=== PATIENT | male | born 1950 | race American Indian/Alaskan Native ===

== ENCOUNTER 2019-10-17 09:44 | Inpatient (IN) | payer MEDICARE ==
[2019-10-17] MEDS ORDERED: LORazepam 1 MG TAB PO PRN (10:20)
[2019-10-17] MEDS ORDERED: VALPROIC ACID 250 MG/5 ML ORAL LIQD PO ONE ×2 (11:30→22:00)
[2019-10-17] MEDS ORDERED: QUEtiapine 200 MG TAB PO SCH (22:00)
[2019-10-17] MEDS ORDERED: traZODone 50 MG TAB PO SCH (22:00)
[2019-10-17] MEDS ORDERED: risperiDONE 0.25 MG TAB PO SCH (22:00)
[2019-10-18 08:21] LABS: Alanine Aminotransferase 31 units/L (7-56); Albumin 3.6 g/dL (3.9-5); BUN/Creatinine Ratio 46; Blood Urea Nitrogen 23 mg/dL (9-20); Calcium 9.1 mg/dL (8.4-10.2); Chol/HDL Ratio 2.48 %; HDL Cholesterol 62 mg/dL (40-59); Hemolysis Index 13; LDL Cholesterol,Direct 90 mg/dL (50-130)
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
[2019-10-18] MEDS ORDERED: SERTRALINE 100 MG TAB PO SCH (10:00)
[2019-10-18 10:19] LABS: Basophils % (Auto) 0.4 % (0.0-1.8); Eosinophils # (Auto) 0.1 K/mm3 (0.0-0.4); Eosinophils % (Auto) 0.5 % (0.0-4.3); Hematocrit 41.1 % (35.5-45.6); Hemoglobin 13.4 gm/dl (11.8-15.2); Lymphocytes # (Auto) 0.6 K/mm3 (1.2-5.4); Lymphocytes % (Auto) 5.5 % (13.4-35.0); Mean Corpuscular HGB Conc 33 % (32-34); Mean Corpuscular Volume 90 fl (84-94); Monocytes # (Auto) 0.9 K/mm3 (0.0-0.8); Monocytes % (Auto) 7.7 % (0.0-7.3); Platelet Count 248 K/mm3 (140-440); Red Blood Count 4.56 M/mm3 (3.65-5.03); Red Cell Distribution Width 15.4 % (13.2-15.2)
[2019-10-18] MEDS ORDERED: ZIPRASIDONE MESYLATE 20 MG VIAL IM PRN (10:30)
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
[2019-10-18] MEDS: traZODone 50 MG TAB PO SCH (21:38)
--- NOTE | 2019-10-19 09:33 | Progress Note ---
Subjective Date of service: 10/19/19 Principal diagnosis: Dementia with Behavioral Disturbances Subjective Comment: I interviewed the patient this morning. Medical records reviewed and patient's progress was discussed with unit staff. Nursing staff reports that patient was medication compliant last evening. He attended group with little interaction. Patient has minimal but appropriate interaction. He went to bed around 2200 with staff assistance. He rested quietly. Patient presents as sleeping 7 plus hours. In my interview with the patient this morning, the patient reports a good appetite. He reports sleeping well Review of Symptoms: Constitutional: Negative for weight loss ENT: Negative for stridor Respiratory: Negative for cough or hemoptysis All other systems reviewed and are negative MSE Appearance: Wearing appropriate clothing. Behavior: Pleasant and cooperative. Mood: "Good" Affect: Congruent with stated mood Thought Process: disorganized Speech: Normal rate. Thought Content Harmfulness Denies SI/HI Hallucinations: patient denies Delusions: none elicited Consciousness: alert. Cognition/Memory: impaired Insight/Judgment: Limited. Diagnosis: Dementia with Behavioral Disturbances Treatment Plan Due to the psychiatric conditions and treatment listed in the Assessment and Plan - the patient requires continued hospitalization. Will continue inpatient treatment to allow for medication adjustment and monitoring. Will continue q15 min safety checks. Will encourage the use of environmental modifications and non-pharmacologic approaches for the management of behavioral and psychological symptoms. Medication adjustment made today: None Will continue current psych medications Monitor for medication side effects. The patient will continue on medications for physical illnesses, and Hospitalist will closely monitor these Continue intensive physical and occupational therapies. Monitor patient's mood, sleep, appetite, and behavior closely. Encourage patient to participate in individual and group therapeutic sessions on the velazquez. Will provide a safe and therapeutic environment for patient. ELOS: 3 - 4 DAYS Medications and Allergies Allergies Allergy/AdvReac Type Severity Reaction Status Date / Time No Known Allergies Allergy Verified 10/17/19 10:25 Home Medications Medication Instructions Recorded Confirmed Last Taken Type Carbidopa/Levodopa 25-100 25 - 100 mg PO TID 10/18/19 10/18/19 Unknown History Carbidopa/Levodopa ER 25-100 25 - 100 mg PO QHS 10/18/19 10/18/19 Unknown History Quetiapine Fumarate 200 mg PO QHS 10/18/19 10/18/19 Unknown History Senna 8.6 mg PO DAILY PRN 10/18/19 10/18/19 Unknown History Tylenol 500 mg PO Q6H PRN 10/18/19 10/18/19 Unknown History Valproic Acid 250 mg PO QHS 10/18/19 10/18/19 Unknown History Active Meds: Active Medications Trazodone HCl (Desyrel) 50 mg PO QHS [facility] Last Admin: 10/18/19 21:38 Dose: 50 mg Documented by: Ziprasidone (Geodon) 20 mg IM Q4H PRN PRN Reason: Agitation Results - Results Labs/Vitals: Laboratory Last Values WBC 11.2 K/mm3 (4.5-11.0) H 10/18/19 09:46 RBC 4.56 M/mm3 (3.65-5.03) 10/18/19 09:46 Hgb 13.4 gm/dl (11.8-15.2) 10/18/19 09:46 Hct 41.1 % (35.5-45.6) 10/18/19 09:46 MCV 90 fl (84-94) 10/18/19 09:46 MCH 29 pg (28-32) 10/18/19 09:46 MCHC 33 % (32-34) 10/18/19 09:46 RDW 15.4 % (13.2-15.2) H 10/18/19 09:46 Plt Count 248 K/mm3 (140-440) 10/18/19 09:46 Lymph % (Auto) 5.5 % (13.4-35.0) L 10/18/19 09:46 [place] % (Auto) 7.7 % (0.0-7.3) H 10/18/19 09:46 Eos % (Auto) 0.5 % (0.0-4.3) 10/18/19 09:46 Baso % (Auto) 0.4 % (0.0-1.8) 10/18/19 09:46 Lymph # 0.6 K/mm3 (1.2-5.4) L 10/18/19 09:46 [place] # 0.9 K/mm3 (0.0-0.8) H 10/18/19 09:46 Eos # 0.1 K/mm3 (0.0-0.4) 10/18/19 09:46 Baso # 0.0 K/mm3 (0.0-0.1) 10/18/19 09:46 Seg Neutrophils % 85.9 % (40.0-70.0) H 10/18/19 09:46 Seg Neutrophils # 9.6 K/mm3 (1.8-7.7) H 10/18/19 09:46 Sodium 145 mmol/L (137-145) 10/18/19 06:51 Potassium 4.3 mmol/L (3.6-5.0) 10/18/19 06:51 Chloride 108.8 mmol/L (98-107) H 10/18/19 06:51 Carbon Dioxide 19 mmol/L (22-30) L 10/18/19 06:51 Anion Gap 22 mmol/L 10/18/19 06:51 BUN 23 mg/dL (9-20) H 10/18/19 06:51 Creatinine 0.5 mg/dL (0.8-1.5) L 10/18/19 06:51 Estimated GFR > 60 ml/min 10/18/19 06:51 BUN/Creatinine Ratio 46 % 10/18/19 06:51 Glucose 97 mg/dL (75-100) 10/18/19 06:51 POC Glucose 121 (70-105) H 10/17/19 20:35 Hemoglobin A1c 6.0 % (4-6) 10/18/19 09:46 Calcium 9.1 mg/dL (8.4-10.2) 10/18/19 06:51 Total Bilirubin 0.30 mg/dL (0.1-1.2) 10/18/19 06:51 AST 14 units/L (5-40) 10/18/19 06:51 ALT 31 units/L (7-56) 10/18/19 06:51 Alkaline Phosphatase 72 units/L (35-129) 10/18/19 06:51 Total Protein 6.4 g/dL (6.3-8.2) 10/18/19 06:51 Albumin 3.6 g/dL (3.9-5) L 10/18/19 06:51 Albumin/Globulin Ratio 1.3 % 10/18/19 06:51 Triglycerides 63 mg/dL (2-149) 10/18/19 06:51 Cholesterol 154 mg/dL (50-199) 10/18/19 06:51 LDL Cholesterol Direct 90 mg/dL (50-130) 10/18/19 06:51 HDL Cholesterol 62 mg/dL (40-59) H 10/18/19 06:51 Cholesterol/HDL Ratio 2.48 % 10/18/19 06:51 Valproic Acid 19.4 ug/mL (50-100) L 10/18/19 06:51 Last Vital Signs Temp 97.5 F L 10/18/19 19:57 Pulse 79 10/18/19 19:57 Resp 16 10/18/19 19:57 BP 120/71 10/18/19 19:57 Pulse Ox 95 10/18/19 19:57
[2019-10-19] MEDS ORDERED: TYLENOL 500 MG PO PRN (18:17)
[2019-10-19] MEDS ORDERED: SENNA 8.6 MG PO PRN (18:17)
[2019-10-19] MEDS ORDERED: ACETAMINOPHEN 500 MG TAB PO PRN (18:40)
[2019-10-19] MEDS ORDERED: SENNOSIDES 8.6 MG TAB PO PRN (18:40)
[2019-10-19] MEDS: traZODone 50 MG TAB PO SCH (21:51)
[2019-10-19] MEDS: QUEtiapine 200 MG TAB PO SCH (21:51)
[2019-10-19] MEDS: VALPROIC ACID 250 MG CAP PO SCH (21:52)
[2019-10-19] MEDS ORDERED: QUETIAPINE FUMARATE 200 MG PO SCH (22:00)
[2019-10-19] MEDS ORDERED: VALPROIC ACID 250 MG PO SCH (22:00)
--- NOTE | 2019-10-20 07:39 | XRay Report ---
CHEST 1 VIEW INDICATION: Pneumonia. COMPARISON: none FINDINGS: SUPPORT DEVICES: None. HEART / MEDIASTINUM: No significant abnormality. LUNGS / PLEURA: No significant pulmonary or pleural abnormality. No pneumothorax. ADDITIONAL FINDINGS: IMPRESSION: 1. No acute findings. Signer Name: Tico Baig MD Signed: 10/20/2019 7:34 AM Workstation Name: [id number]
--- NOTE | 2019-10-20 09:06 | Progress Note ---
Subjective Date of service: 10/20/19 Principal diagnosis: Dementia with Behavioral Disturbances Subjective Comment: Subjective Comment: I interviewed the patient this morning. Medical records reviewed and patient's progress was discussed with unit staff. Nursing note states the patient attended group with little interaction. Patient has minimal but appropriate interaction. He went to bed around 2200 with staff assistance. He rested quietly. Patient presents as sleeping 7 plus hours. In my interview with the patient this morning, he is still in bed. Asleep. Aroused by vigorous tactile stimulation. He is confused, but makes eye contact. He drifts back to sleep on and off during interview. He replies "yes" when asked if he slept well. He also replies "yes" when asked if his mood was good. Review of Symptoms: Constitutional: Negative for weight loss ENT: Negative for stridor Respiratory: Negative for cough or hemoptysis All other systems reviewed and are negative MSE Appearance: Wearing appropriate clothing. Drowsy Behavior: Calm, cooperative Mood: Good Affect: Congruent with stated mood Thought Process: disorganized Speech: Normal rate. Thought Content Harmfulness Denies SI/HI Hallucinations: patient denies Delusions: none elicited Consciousness: Drowsy Cognition/Memory: impaired Insight/Judgment: Limited. Diagnosis: Dementia with Behavioral Disturbances Treatment Plan Due to the psychiatric conditions and treatment listed in the Assessment and Plan - the patient requires continued hospitalization. Will continue inpatient treatment to allow for medication adjustment and monitoring. Will continue q15 min safety checks. Will encourage the use of environmental modifications and non-pharmacologic a pproaches for the management of behavioral and psychological symptoms. Medication adjustment made today: None Will continue current psych medications Monitor for medication side effects. The patient will continue on medications for physical illnesses, and Hospitalist will closely monitor these Continue intensive physical and occupational therapies. Monitor patient's mood, sleep, appetite, and behavior closely. Encourage patient to participate in individual and group therapeutic sessions on the velazquez. Will provide a safe and therapeutic environment for patient. ELOS: 3 - 4 DAYS Medications and Allergies Allergies Allergy/AdvReac Type Severity Reaction Status Date / Time No Known Allergies Allergy Verified 10/17/19 10:25 Home Medications Medication Instructions Recorded Confirmed Last Taken Type Carbidopa/Levodopa 25-100 25 - 100 mg PO TID 10/18/19 10/18/19 Unknown History Carbidopa/Levodopa ER 25-100 25 - 100 mg PO QHS 10/18/19 10/18/19 Unknown History Quetiapine Fumarate 200 mg PO QHS 10/18/19 10/18/19 Unknown History Senna 8.6 mg PO DAILY PRN 10/18/19 10/18/19 Unknown History Tylenol 500 mg PO Q6H PRN 10/18/19 10/18/19 Unknown History Valproic Acid 250 mg PO QHS 10/18/19 10/18/19 Unknown History Active Meds: Active Medications Acetaminophen (Tylenol) 500 mg PO Q6H PRN PRN Reason: Pain, Mild (1-3) [facility] Admin: 10/19/19 21:51 Dose: 200 mg Documented by: Senna (Senokot) 8.6 mg PO DAILY PRN PRN Reason: CONSTIPATION [facility] ([facility]) [facility] Last Admin: 10/19/19 21:51 Dose: 50 mg Documented by: Valproic [facility] (Depakene) [facility] Last Admin: 10/19/19 21:52 Dose: 250 mg Documented by: Ziprasidone (Geodon) 20 mg IM Q4H PRN PRN Reason: Agitation Results - Results Labs/Vitals: Laboratory Last Values WBC 11.2 K/mm3 (4.5-11.0) H 10/18/19 09:46 RBC 4.56 M/mm3 (3.65-5.03) 10/18/19 09:46 Hgb 13.4 gm/dl (11.8-15.2) 10/18/19 09:46 Hct 41.1 % (35.5-45.6) 10/18/19 09:46 MCV 90 fl (84-94) 10/18/19 09:46 MCH 29 pg (28-32) 10/18/19 09:46 MCHC 33 % (32-34) 10/18/19 09:46 RDW 15.4 % (13.2-15.2) H 10/18/19 09:46 Plt Count 248 K/mm3 (140-440) 10/18/19 09:46 Lymph % (Auto) 5.5 % (13.4-35.0) L 10/18/19 09:46 [place] % (Auto) 7.7 % (0.0-7.3) H 10/18/19 09:46 Eos % (Auto) 0.5 % (0.0-4.3) 10/18/19 09:46 Baso % (Auto) 0.4 % (0.0-1.8) 10/18/19 09:46 Lymph # 0.6 K/mm3 (1.2-5.4) L 10/18/19 09:46 [place] # 0.9 K/mm3 (0.0-0.8) H 10/18/19 09:46 Eos # 0.1 K/mm3 (0.0-0.4) 10/18/19 09:46 Baso # 0.0 K/mm3 (0.0-0.1) 10/18/19 09:46 Seg Neutrophils % 85.9 % (40.0-70.0) H 10/18/19 09:46 Seg Neutrophils # 9.6 K/mm3 (1.8-7.7) H 10/18/19 09:46 Sodium 145 mmol/L (137-145) 10/18/19 06:51 Potassium 4.3 mmol/L (3.6-5.0) 10/18/19 06:51 Chloride 108.8 mmol/L (98-107) H 10/18/19 06:51 Carbon Dioxide 19 mmol/L (22-30) L 10/18/19 06:51 Anion Gap 22 mmol/L 10/18/19 06:51 BUN 23 mg/dL (9-20) H 10/18/19 06:51 Creatinine 0.5 mg/dL (0.8-1.5) L 10/18/19 06:51 Estimated GFR > 60 ml/min 10/18/19 06:51 BUN/Creatinine Ratio 46 % 10/18/19 06:51 Glucose 97 mg/dL (75-100) 10/18/19 06:51 POC Glucose 121 (70-105) H 10/17/19 20:35 Hemoglobin A1c 6.0 % (4-6) 10/18/19 09:46 Calcium 9.1 mg/dL (8.4-10.2) 10/18/19 06:51 Total Bilirubin 0.30 mg/dL (0.1-1.2) 10/18/19 06:51 AST 14 units/L (5-40) 10/18/19 06:51 ALT 31 units/L (7-56) 10/18/19 06:51 Alkaline Phosphatase 72 units/L (35-129) 10/18/19 06:51 Total Protein 6.4 g/dL (6.3-8.2) 10/18/19 06:51 Albumin 3.6 g/dL (3.9-5) L 10/18/19 06:51 Albumin/Globulin Ratio 1.3 % 10/18/19 06:51 Triglycerides 63 mg/dL (2-149) 10/18/19 06:51 Cholesterol 154 mg/dL (50-199) 10/18/19 06:51 LDL Cholesterol Direct 90 mg/dL (50-130) 10/18/19 06:51 HDL Cholesterol 62 mg/dL (40-59) H 10/18/19 06:51 Cholesterol/HDL Ratio 2.48 % 10/18/19 06:51 Valproic Acid 19.4 ug/mL (50-100) L 10/18/19 06:51 Last Vital Signs Temp 98.2 F 10/19/19 19:30 Pulse 77 10/19/19 19:30 Resp 18 10/19/19 19:30 BP 142/85 10/19/19 19:30 Pulse Ox 95 10/19/19 19:30
[2019-10-20] MEDS: VALPROIC ACID 250 MG CAP PO SCH (21:35)
[2019-10-20] MEDS: traZODone 50 MG TAB PO SCH (21:35)
[2019-10-20] MEDS: QUEtiapine 200 MG TAB PO SCH (21:35)
--- NOTE | 2019-10-21 07:42 | Progress Note ---
Subjective Date of service: 10/21/19 Principal diagnosis: Dementia with Behavioral Disturbances Subjective Comment: Subjective Comment: I interviewed the patient this morning. Medical records reviewed and patient's progress was discussed with unit staff. Nursing note states patient is medication compliant, consumed about 75% of bed time snack, total care, calm and cooperative, alert and oriented to person, no behavioral issues, no distress noted In my interview with the patient this morning, he is still in bed. Awake. He responds and makes eye contact when spoken to. He is confused. He inappropriately responds "yes" to all interview questions. Review of Symptoms: Constitutional: Negative for weight loss ENT: Negative for stridor Respiratory: Negative for cough or hemoptysis All other systems reviewed and are negative MSE Appearance: Wearing appropriate clothing. Awake Behavior: Calm, cooperative Mood: "yes" Affect: Congruent with stated mood Thought Process: disorganized Speech: Normal rate. Thought Content (unable answer appropriately) Harmfulness Hallucinations: Delusions: none elicited Consciousness: Alert Cognition/Memory: impaired Insight/Judgment: Limited. Diagnosis: Dementia with Behavioral Disturbances Treatment Plan Due to the psychiatric conditions and treatment listed in the Assessment and Plan - the patient requires continued hospitalization. Will continue inpatient treatment to allow for medication adjustment and monitoring. Will continue q15 min safety checks. Will encourage the use of environmental modifications and non-pharmacologic approaches for the management of behavioral and psychological symptoms. Medication adjustment made today: None Will continue current psych medications Monitor for medication side effects. The patient will continue on medications for physical illnesses, and Hospitalist will closely monitor these Continue intensive physical and occupational therapies. Monitor patient's mood, sleep, appetite, and behavior closely. Encourage patient to participate in individual and group therapeutic sessions on the velazquez. Will provide a safe and therapeutic environment for patient. ELOS: 3 DAYS Medications and Allergies Allergies Allergy/AdvReac Type Severity Reaction Status Date / Time No Known Allergies Allergy Verified 10/17/19 10:25 Home Medications Medication Instructions Recorded Confirmed Last Taken Type Carbidopa/Levodopa 25-100 25 - 100 mg PO TID 10/18/19 10/18/19 Unknown History Carbidopa/Levodopa ER 25-100 25 - 100 mg PO QHS 10/18/19 10/18/19 Unknown History Quetiapine Fumarate 200 mg PO QHS 10/18/19 10/18/19 Unknown History Senna 8.6 mg PO DAILY PRN 10/18/19 10/18/19 Unknown History Tylenol 500 mg PO Q6H PRN 10/18/19 10/18/19 Unknown History Valproic Acid 250 mg PO QHS 10/18/19 10/18/19 Unknown History Active Meds: Active Medications Acetaminophen (Tylenol) 500 mg PO Q6H PRN PRN Reason: Pain, Mild (1-3) [facility] Last Admin: 10/20/19 21:35 Dose: 200 mg Documented by: Senna (Senokot) 8.6 mg PO DAILY PRN PRN Reason: CONSTIPATION Trazodone HCl (Desyrel) 50 mg PO QHS [facility] Last Admin: 10/20/19 21:35 Dose: 50 mg Documented by: Valproic [facility] ([facility]) [facility] Last Admin: 10/20/19 21:35 Dose: 250 mg Documented by: Ziprasidone (Geodon) 20 mg IM Q4H PRN PRN Reason: Agitation Results - Results Labs/Vitals: Laboratory Last Values WBC 11.2 K/mm3 (4.5-11.0) H 10/18/19 09:46 RBC 4.56 M/mm3 (3.65-5.03) 10/18/19 09:46 Hgb 13.4 gm/dl (11.8-15.2) 10/18/19 09:46 Hct 41.1 % (35.5-45.6) 10/18/19 09:46 MCV 90 fl (84-94) 10/18/19 09:46 MCH 29 pg (28-32) 10/18/19 09:46 MCHC 33 % (32-34) 10/18/19 09:46 RDW 15.4 % (13.2-15.2) H 10/18/19 09:46 Plt Count 248 K/mm3 (140-440) 10/18/19 09:46 Lymph % (Auto) 5.5 % (13.4-35.0) L 10/18/19 09:46 [place] % (Auto) 7.7 % (0.0-7.3) H 10/18/19 09:46 Eos % (Auto) 0.5 % (0.0-4.3) 10/18/19 09:46 Baso % (Auto) 0.4 % (0.0-1.8) 10/18/19 09:46 Lymph # 0.6 K/mm3 (1.2-5.4) L 10/18/19 09:46 [place] # 0.9 K/mm3 (0.0-0.8) H 10/18/19 09:46 Eos # 0.1 K/mm3 (0.0-0.4) 10/18/19 09:46 Baso # 0.0 K/mm3 (0.0-0.1) 10/18/19 09:46 Seg Neutrophils % 85.9 % (40.0-70.0) H 10/18/19 09:46 Seg Neutrophils # 9.6 K/mm3 (1.8-7.7) H 10/18/19 09:46 Sodium 145 mmol/L (137-145) 10/18/19 06:51 Potassium 4.3 mmol/L (3.6-5.0) 10/18/19 06:51 Chloride 108.8 mmol/L (98-107) H 10/18/19 06:51 Carbon Dioxide 19 mmol/L (22-30) L 10/18/19 06:51 Anion Gap 22 mmol/L 10/18/19 06:51 BUN 23 mg/dL (9-20) H 10/18/19 06:51 Creatinine 0.5 mg/dL (0.8-1.5) L 10/18/19 06:51 Estimated GFR > 60 ml/min 10/18/19 06:51 BUN/Creatinine Ratio 46 % 10/18/19 06:51 Glucose 97 mg/dL (75-100) 10/18/19 06:51 POC Glucose 121 (70-105) H 10/17/19 20:35 Hemoglobin A1c 6.0 % (4-6) 10/18/19 09:46 Calcium 9.1 mg/dL (8.4-10.2) 10/18/19 06:51 Total Bilirubin 0.30 mg/dL (0.1-1.2) 10/18/19 06:51 AST 14 units/L (5-40) 10/18/19 06:51 ALT 31 units/L (7-56) 10/18/19 06:51 Alkaline Phosphatase 72 units/L (35-129) 10/18/19 06:51 Total Protein 6.4 g/dL (6.3-8.2) 10/18/19 06:51 Albumin 3.6 g/dL (3.9-5) L 10/18/19 06:51 Albumin/Globulin Ratio 1.3 % 10/18/19 06:51 Triglycerides 63 mg/dL (2-149) 10/18/19 06:51 Cholesterol 154 mg/dL (50-199) 10/18/19 06:51 LDL Cholesterol Direct 90 mg/dL (50-130) 10/18/19 06:51 HDL Cholesterol 62 mg/dL (40-59) H 10/18/19 06:51 Cholesterol/HDL Ratio 2.48 % 10/18/19 06:51 Valproic Acid 19.4 ug/mL (50-100) L 10/18/19 06:51 Last Vital Signs Temp 98.3 F 10/20/19 19:30 Pulse 88 10/20/19 19:30 Resp 20 10/20/19 19:30 BP 145/86 10/20/19 19:30 Pulse Ox 92 10/20/19 19:30
[2019-10-21] MEDS ORDERED: LORazepam 2 MG/ML VIAL IM ONE (13:00)
[2019-10-21] MEDS: VALPROIC ACID 250 MG CAP PO SCH ×2 (15:00→19:56)
[2019-10-21] MEDS: traZODone 50 MG TAB PO SCH (21:30)
[2019-10-21] MEDS: QUEtiapine 200 MG TAB PO SCH (21:30)
[2019-10-22] MEDS: VALPROIC ACID 250 MG CAP PO SCH ×3 (09:13→21:05)
[2019-10-22] MEDS ORDERED: WATER FOR INJ Sterile (PF) 10 ML ONE (10:50)
[2019-10-22] MEDS: ZIPRASIDONE MESYLATE 20 MG VIAL IM PRN (10:57)
--- NOTE | 2019-10-22 10:59 | Progress Note ---
Subjective Date of service: 10/22/19 Principal diagnosis: Dementia with Behavioral Disturbances Subjective Comment: I interviewed the patient this morning. Medical records reviewed and patient's progress was discussed with unit staff. Nursing staff reports that patient was medication compliant last evening during the night he was very noisy and fighting with the staff. Patient has been up most of the night. The staff also reported that the patient has been restless and agitated and required PRN medication. In my interview with the patient this morning, the patient was very drowsy and was unable to respond to my questions. With follow-up later. Reason for continued hospitalization: monitor medication effectiveness and behavioral issues. Review of Symptoms: Constitutional: Negative for weight loss ENT: Negative for stridor Respiratory: Negative for cough or hemoptysis All other systems reviewed and are negative MSE Appearance: Wearing appropriate clothing. Good hygiene Behavior: sleeping Mood: Affect: Congruent with stated mood Thought Process: Goal directed Speech: Normal rate. Thought Content Harmfulness Denies SI/HI Hallucinations: patient denies Delusions: none elicited Consciousness: alert. Cognition/Memory: Impaired Insight/Judgment: Limited. Diagnosis: increased agitation and aggression Treatment Plan Due to the psychiatric conditions and treatment listed in the Assessment and Plan - the patient requires continued hospitalization. Will continue inpatient treatment to allow for medication adjustment and monitoring. Will continue q15 min safety checks. Will encourage the use of environmental modifications and non-pharmacologic approaches for the management of behavioral and psychological symptoms. Medication adjustment made today: Increase trazodone to 100 mg daily at bedtime. Will continue current psych medications Monitor for medication side effects. The patient will continue on medications for physical illnesses, and Hospitalist will closely monitor these Continue intensive physical and occupational therapies. Monitor patient's mood, sleep, appetite, and behavior closely. Encourage patient to participate in individual and group therapeutic sessions on the velazquez. Will provide a safe and therapeutic environment for patient. ELOS: 3 - 4 DAYS Medications and Allergies Allergies Allergy/AdvReac Type Severity Reaction Status Date / Time No Known Allergies Allergy Verified 10/17/19 10:25 Home Medications Medication Instructions Recorded Confirmed Last Taken Type Carbidopa/Levodopa 25-100 25 - 100 mg PO TID 10/18/19 10/18/19 Unknown History Carbidopa/Levodopa ER 25-100 25 - 100 mg PO QHS 10/18/19 10/18/19 Unknown History Quetiapine Fumarate 200 mg PO QHS 10/18/19 10/18/19 Unknown History Senna 8.6 mg PO DAILY PRN 10/18/19 10/18/19 Unknown History Tylenol 500 mg PO Q6H PRN 10/18/19 10/18/19 Unknown History Valproic Acid 250 mg PO QHS 10/18/19 10/18/19 Unknown History Active Meds: Active Medications Acetaminophen (Tylenol) 500 mg PO Q6H PRN PRN Reason: Pain, Mild (1-3) Quetiapine Fumarate (Seroquel) 200 mg PO QHS [facility] Last Admin: 10/21/19 21:30 Dose: 200 mg Documented by: Senna (Senokot) 8.6 mg PO DAILY PRN PRN Reason: CONSTIPATION Trazodone HCl (Desyrel) 50 mg PO QHS [facility] Last Admin: 10/21/19 21:30 Dose: 50 mg Documented by: Valproic Acid (Depakene) 250 mg PO TID [facility] Last Admin: 10/22/19 09:13 Dose: 250 mg Documented by: Ziprasidone (Geodon) 10 mg IM Q4H PRN PRN Reason: Agitation Last Admin: 10/22/19 10:57 Dose: 10 mg Documented by: Results - Results Labs/Vitals: Laboratory Last Values WBC 11.2 K/mm3 (4.5-11.0) H 10/18/19 09:46 RBC 4.56 M/mm3 (3.65-5.03) 10/18/19 09:46 Hgb 13.4 gm/dl (11.8-15.2) 10/18/19 09:46 Hct 41.1 % (35.5-45.6) 10/18/19 09:46 MCV 90 fl (84-94) 10/18/19 09:46 MCH 29 pg (28-32) 10/18/19 09:46 MCHC 33 % (32-34) 10/18/19 09:46 RDW 15.4 % (13.2-15.2) H 10/18/19 09:46 Plt Count 248 K/mm3 (140-440) 10/18/19 09:46 Lymph % (Auto) 5.5 % (13.4-35.0) L 10/18/19 09:46 [place] % (Auto) 7.7 % (0.0-7.3) H 10/18/19 09:46 Eos % (Auto) 0.5 % (0.0-4.3) 10/18/19 09:46 Baso % (Auto) 0.4 % (0.0-1.8) 10/18/19 09:46 Lymph # 0.6 K/mm3 (1.2-5.4) L 10/18/19 09:46 [place] # 0.9 K/mm3 (0.0-0.8) H 10/18/19 09:46 Eos # 0.1 K/mm3 (0.0-0.4) 10/18/19 09:46 Baso # 0.0 K/mm3 (0.0-0.1) 10/18/19 09:46 Seg Neutrophils % 85.9 % (40.0-70.0) H 10/18/19 09:46 Seg Neutrophils # 9.6 K/mm3 (1.8-7.7) H 10/18/19 09:46 Sodium 145 mmol/L (137-145) 10/18/19 06:51 Potassium 4.3 mmol/L (3.6-5.0) 10/18/19 06:51 Chloride 108.8 mmol/L (98-107) H 10/18/19 06:51 Carbon Dioxide 19 mmol/L (22-30) L 10/18/19 06:51 Anion Gap 22 mmol/L 10/18/19 06:51 BUN 23 mg/dL (9-20) H 10/18/19 06:51 Creatinine 0.5 mg/dL (0.8-1.5) L 10/18/19 06:51 Estimated GFR > 60 ml/min 10/18/19 06:51 BUN/Creatinine Ratio 46 % 10/18/19 06:51 Glucose 97 mg/dL (75-100) 10/18/19 06:51 POC Glucose 121 (70-105) H 10/17/19 20:35 Hemoglobin A1c 6.0 % (4-6) 10/18/19 09:46 Calcium 9.1 mg/dL (8.4-10.2) 10/18/19 06:51 Total Bilirubin 0.30 mg/dL (0.1-1.2) 10/18/19 06:51 AST 14 units/L (5-40) 10/18/19 06:51 ALT 31 units/L (7-56) 10/18/19 06:51 Alkaline Phosphatase 72 units/L (35-129) 10/18/19 06:51 Total Protein 6.4 g/dL (6.3-8.2) 10/18/19 06:51 Albumin 3.6 g/dL (3.9-5) L 10/18/19 06:51 Albumin/Globulin Ratio 1.3 % 10/18/19 06:51 Triglycerides 63 mg/dL (2-149) 10/18/19 06:51 Cholesterol 154 mg/dL (50-199) 10/18/19 06:51 LDL Cholesterol Direct 90 mg/dL (50-130) 10/18/19 06:51 HDL Cholesterol 62 mg/dL (40-59) H 10/18/19 06:51 Cholesterol/HDL Ratio 2.48 % 10/18/19 06:51 Valproic Acid 19.4 ug/mL (50-100) L 10/18/19 06:51 Last Vital Signs Temp 98.0 F 10/22/19 08:00 Pulse 84 10/22/19 09:35 Resp 20 10/22/19 08:00 BP 106/61 10/22/19 09:35 Pulse Ox 93 10/22/19 09:35
[2019-10-22] MEDS: traZODone 100 MG TAB PO SCH (21:05)
[2019-10-22] MEDS: QUEtiapine 200 MG TAB PO SCH (21:06)
--- NOTE | 2019-10-23 07:33 | Progress Note ---
Subjective Date of service: 10/23/19 Principal diagnosis: Dementia with Behavioral Disturbances Subjective Comment: Subjective Comment: I interviewed the patient this morning. Medical records reviewed and patient's progress was discussed with unit staff. Nursing note states medication minimally effective. patient continues to be restless in bed. patient re-oriented but not effective. patient said, "no" when song writer asked if he could walk, but continues to try to climb out of bed. In my interview with the patient this morning, he is still in bed. Asleep but easily arouses. He is a/o x 1. The patient says he had a good night. He replied "yes" when asked if his appetite was okay. When asked how was his mood, Mr. Camara becomes quite agitated and shouts, "not good, want to get out of here." He denies SI/HI or any hallucinations. Reason for continued hospitalization: The patient continues to have increased agitation and restlessness. Medications being adjusted. Review of Symptoms: Constitutional: Negative for weight loss ENT: Negative for stridor Respiratory: Negative for cough or hemoptysis All other systems reviewed and are negative Mental Status Exam Appearance: Wearing appropriate clothing. Asleep Behavior: Irritable, cooperative Mood: "Not good, want to get out of here" Affect: Congruent with stated mood Thought Process: disorganized Speech: Normal rate. Thought Content Harmfulness: Denies Hallucinations: Denies Delusions: none elicited Consciousness: Drowsy Cognition/Memory: impaired Insight/Judgment: Limited. Diagnosis: Dementia with Behavioral Disturbances Treatment Plan Due to the psychiatric conditions and treatment listed in the Assessment and Plan - the patient requires continued hospitalization. Will continue inpatient treatment to allow for medication adjustment and monitoring. Will continue q15 min safety checks. Will encourage the use of environmental modifications and non-pharmacologic approaches for the management of behavioral and psychological symptoms. Medication adjustment made today: Risperidone 0.25mg po daily to treat agitation and irritability Will continue current psych medications Monitor for medication side effects. The patient will continue on medications for physical illnesses, and Hospitalist will closely monitor these Continue intensive physical and occupational therapies. Monitor patient's mood, sleep, appetite, and behavior closely. Encourage patient to participate in individual and group therapeutic sessions on the velazquez. Will provide a safe and therapeutic environment for patient. ELOS: 3 to 4 DAYS Medications and Allergies Allergies Allergy/AdvReac Type Severity Reaction Status Date / Time No Known Allergies Allergy Verified 10/17/19 10:25 Home Medications Medication Instructions Recorded Confirmed Last Taken Type Carbidopa/Levodopa 25-100 25 - 100 mg PO TID 10/18/19 10/18/19 Unknown History Carbidopa/Levodopa ER 25-100 25 - 100 mg PO QHS 10/18/19 10/18/19 Unknown History Quetiapine Fumarate 200 mg PO QHS 10/18/19 10/18/19 Unknown History Senna 8.6 mg PO DAILY PRN 10/18/19 10/18/19 Unknown History Tylenol 500 mg PO Q6H PRN 10/18/19 10/18/19 Unknown History Valproic Acid 250 mg PO QHS 10/18/19 10/18/19 Unknown History Active Meds: Active Medications Acetaminophen (Tylenol) 500 mg PO Q6H PRN PRN Reason: Pain, Mild (1-3) Quetiapine Fumarate (Seroquel) 200 mg PO QHS [facility] Last Admin: 10/22/19 21:06 Dose: 200 mg Documented by: Senna (Senokot) 8.6 mg PO DAILY PRN PRN Reason: CONSTIPATION Trazodone HCl (Desyrel) 100 mg PO QHS [facility] Last Admin: 10/22/19 21:05 Dose: 100 mg Documented by: Valproic Acid (Depakene) 250 mg PO TID [facility] Last Admin: 10/22/19 21:05 Dose: 250 mg Documented by: Ziprasidone (Geodon) 10 mg IM Q4H PRN PRN Reason: Agitation Last Admin: 10/22/19 10:57 Dose: 10 mg Documented by: Results - Results Labs/Vitals: Laboratory Last Values WBC 11.2 K/mm3 (4.5-11.0) H 10/18/19 09:46 RBC 4.56 M/mm3 (3.65-5.03) 10/18/19 09:46 Hgb 13.4 gm/dl (11.8-15.2) 10/18/19 09:46 Hct 41.1 % (35.5-45.6) 10/18/19 09:46 MCV 90 fl (84-94) 10/18/19 09:46 MCH 29 pg (28-32) 10/18/19 09:46 MCHC 33 % (32-34) 10/18/19 09:46 RDW 15.4 % (13.2-15.2) H 10/18/19 09:46 Plt Count 248 K/mm3 (140-440) 10/18/19 09:46 Lymph % (Auto) 5.5 % (13.4-35.0) L 10/18/19 09:46 [place] % (Auto) 7.7 % (0.0-7.3) H 10/18/19 09:46 Eos % (Auto) 0.5 % (0.0-4.3) 10/18/19 09:46 Baso % (Auto) 0.4 % (0.0-1.8) 10/18/19 09:46 Lymph # 0.6 K/mm3 (1.2-5.4) L 10/18/19 09:46 [place] # 0.9 K/mm3 (0.0-0.8) H 10/18/19 09:46 Eos # 0.1 K/mm3 (0.0-0.4) 10/18/19 09:46 Baso # 0.0 K/mm3 (0.0-0.1) 10/18/19 09:46 Seg Neutrophils % 85.9 % (40.0-70.0) H 10/18/19 09:46 Seg Neutrophils # 9.6 K/mm3 (1.8-7.7) H 10/18/19 09:46 Sodium 145 mmol/L (137-145) 10/18/19 06:51 Potassium 4.3 mmol/L (3.6-5.0) 10/18/19 06:51 Chloride 108.8 mmol/L (98-107) H 10/18/19 06:51 Carbon Dioxide 19 mmol/L (22-30) L 10/18/19 06:51 Anion Gap 22 mmol/L 10/18/19 06:51 BUN 23 mg/dL (9-20) H 10/18/19 06:51 Creatinine 0.5 mg/dL (0.8-1.5) L 10/18/19 06:51 Estimated GFR > 60 ml/min 10/18/19 06:51 BUN/Creatinine Ratio 46 % 10/18/19 06:51 Glucose 97 mg/dL (75-100) 10/18/19 06:51 POC Glucose 121 (70-105) H 10/17/19 20:35 Hemoglobin A1c 6.0 % (4-6) 10/18/19 09:46 Calcium 9.1 mg/dL (8.4-10.2) 10/18/19 06:51 Total Bilirubin 0.30 mg/dL (0.1-1.2) 10/18/19 06:51 AST 14 units/L (5-40) 10/18/19 06:51 ALT 31 units/L (7-56) 10/18/19 06:51 Alkaline Phosphatase 72 units/L (35-129) 10/18/19 06:51 Total Protein 6.4 g/dL (6.3-8.2) 10/18/19 06:51 Albumin 3.6 g/dL (3.9-5) L 10/18/19 06:51 Albumin/Globulin Ratio 1.3 % 10/18/19 06:51 Triglycerides 63 mg/dL (2-149) 10/18/19 06:51 Cholesterol 154 mg/dL (50-199) 10/18/19 06:51 LDL Cholesterol Direct 90 mg/dL (50-130) 10/18/19 06:51 HDL Cholesterol 62 mg/dL (40-59) H 10/18/19 06:51 Cholesterol/HDL Ratio 2.48 % 10/18/19 06:51 Valproic Acid 19.4 ug/mL (50-100) L 10/18/19 06:51 Last Vital Signs Temp 98.9 F 10/22/19 19:34 Pulse 83 10/22/19 19:34 Resp 20 10/22/19 19:34 BP 132/83 10/22/19 19:34 Pulse Ox 93 10/22/19 19:34
[2019-10-23] MEDS: VALPROIC ACID 250 MG CAP PO SCH ×3 (09:23→20:35)
[2019-10-23] MEDS: risperiDONE 0.25 MG TAB PO SCH (09:23)
[2019-10-23] MEDS: ZIPRASIDONE MESYLATE 20 MG VIAL IM PRN (14:32)
[2019-10-23] MEDS: QUEtiapine 200 MG TAB PO SCH (21:21)
[2019-10-23] MEDS: traZODone 100 MG TAB PO SCH (23:01)
[2019-10-24] MEDS: VALPROIC ACID 250 MG CAP PO SCH ×3 (09:03→20:19)
[2019-10-24] MEDS: risperiDONE 0.25 MG TAB PO SCH (09:03)
[2019-10-24] MEDS: ZIPRASIDONE MESYLATE 20 MG VIAL IM PRN (09:38)
--- NOTE | 2019-10-24 10:05 | Progress Note ---
Subjective Date of service: 10/24/19 Principal diagnosis: Dementia with Behavioral Disturbances Subjective Comment: I interviewed the patient this morning. Medical records reviewed and patient's progress was discussed with unit staff. Nursing staff reports that patient is alert and oriented x's 1; restless, irritable, and uncooperative. Patient is non-compliant with morning medications. He requires PRN medications for agitation. Patient is combative with ADL's. he is non-ambulatory and a high risk for falls, as he is restless on the rafael-chair and in bed. patient is total care, max assistance. bruises to bilateral upper extremities and redness on buttocks. In my interview with the patient this morning, the patient reports not feeling good and he mumbled a few unintelligible words Review of Symptoms: Constitutional: Negative for weight loss ENT: Negative for stridor Respiratory: Negative for cough or hemoptysis All other systems reviewed and are negative MSE Appearance: Wearing appropriate clothing. Behavior: Pleasant and cooperative. Mood: "Good" Affect: Congruent with stated mood Thought Process: disorganized Speech: Normal rate. Thought Content Harmfulness Denies SI/HI Hallucinations: patient denies Delusions: none elicited Consciousness: alert. Cognition/Memory: impaired Insight/Judgment: Limited. Diagnosis: Dementia with Behavioral Disturbances Treatment Plan Due to the psychiatric conditions and treatment listed in the Assessment and Plan - the patient requires continued hospitalization. Will continue inpatient treatment to allow for medication adjustment and monitoring. Will continue q15 min safety checks. Will encourage the use of environmental modifications and non-pharmacologic approaches for the management of behavioral and psychological symptoms. Medication adjustment made today: Discontinue Risperidone and add Seroquel 25mg tid for mood and agitation Valproic acid level is scheduled for tomorrow am Monitor for medication side effects. The patient will continue on medications for physical illnesses, and Hospitalist will closely monitor these Continue intensive physical and occupational therapies. Monitor patient's mood, sleep, appetite, and behavior closely. Encourage patient to participate in individual and group therapeutic sessions on the velazquez. Will provide a safe and therapeutic environment for patient. ELOS: 3 - 4 DAYS Medications and Allergies Allergies Allergy/AdvReac Type Severity Reaction Status Date / Time No Known Allergies Allergy Verified 10/17/19 10:25 Home Medications Medication Instructions Recorded Confirmed Last Taken Type Carbidopa/Levodopa 25-100 25 - 100 mg PO TID 10/18/19 10/18/19 Unknown History Carbidopa/Levodopa ER 25-100 25 - 100 mg PO QHS 10/18/19 10/18/19 Unknown His tory Quetiapine Fumarate 200 mg PO QHS 10/18/19 10/18/19 Unknown History Senna 8.6 mg PO DAILY PRN 10/18/19 10/18/19 Unknown History Tylenol 500 mg PO Q6H PRN 10/18/19 10/18/19 Unknown History Valproic Acid 250 mg PO QHS 10/18/19 10/18/19 Unknown History Active Meds: Active Medications Acetaminophen (Tylenol) 500 mg PO Q6H PRN PRN Reason: Pain, Mild (1-3) Quetiapine Fumarate (Seroquel) 200 mg PO QHS [facility] Last Admin: 10/23/19 21:21 Dose: 200 mg Documented by: Risperidone (Risperdal) 0.25 mg PO DAILY [facility] Last Admin: 10/24/19 09:03 Dose: Not Given Documented by: Senna (Senokot) 8.6 mg PO DAILY PRN PRN Reason: CONSTIPATION Trazodone HCl (Desyrel) 100 mg PO QHS [facility] Last Admin: 10/23/19 23:01 Dose: 100 mg Documented by: Valproic Acid (Depakene) 250 mg PO TID [facility] Last Admin: 10/24/19 09:03 Dose: Not Given Documented by: Ziprasidone (Geodon) 10 mg IM Q4H PRN PRN Reason: Agitation Last Admin: 10/24/19 09:38 Dose: 10 mg Documented by: Results - Results Labs/Vitals: Laboratory Last Values WBC 11.2 K/mm3 (4.5-11.0) H 10/18/19 09:46 RBC 4.56 M/mm3 (3.65-5.03) 10/18/19 09:46 Hgb 13.4 gm/dl (11.8-15.2) 10/18/19 09:46 Hct 41.1 % (35.5-45.6) 10/18/19 09:46 MCV 90 fl (84-94) 10/18/19 09:46 MCH 29 pg (28-32) 10/18/19 09:46 MCHC 33 % (32-34) 10/18/19 09:46 RDW 15.4 % (13.2-15.2) H 10/18/19 09:46 Plt Count 248 K/mm3 (140-440) 10/18/19 09:46 Lymph % (Auto) 5.5 % (13.4-35.0) L 10/18/19 09:46 [place] % (Auto) 7.7 % (0.0-7.3) H 10/18/19 09:46 Eos % (Auto) 0.5 % (0.0-4.3) 10/18/19 09:46 Baso % (Auto) 0.4 % (0.0-1.8) 10/18/19 09:46 Lymph # 0.6 K/mm3 (1.2-5.4) L 10/18/19 09:46 [place] # 0.9 K/mm3 (0.0-0.8) H 10/18/19 09:46 Eos # 0.1 K/mm3 (0.0-0.4) 10/18/19 09:46 Baso # 0.0 K/mm3 (0.0-0.1) 10/18/19 09:46 Seg Neutrophils % 85.9 % (40.0-70.0) H 10/18/19 09:46 Seg Neutrophils # 9.6 K/mm3 (1.8-7.7) H 10/18/19 09:46 Sodium 145 mmol/L (137-145) 10/18/19 06:51 Potassium 4.3 mmol/L (3.6-5.0) 10/18/19 06:51 Chloride 108.8 mmol/L (98-107) H 10/18/19 06:51 Carbon Dioxide 19 mmol/L (22-30) L 10/18/19 06:51 Anion Gap 22 mmol/L 10/18/19 06:51 BUN 23 mg/dL (9-20) H 10/18/19 06:51 Creatinine 0.5 mg/dL (0.8-1.5) L 10/18/19 06:51 Estimated GFR > 60 ml/min 10/18/19 06:51 BUN/Creatinine Ratio 46 % 10/18/19 06:51 Glucose 97 mg/dL (75-100) 10/18/19 06:51 POC Glucose 121 (70-105) H 10/17/19 20:35 Hemoglobin A1c 6.0 % (4-6) 10/18/19 09:46 Calcium 9.1 mg/dL (8.4-10.2) 10/18/19 06:51 Total Bilirubin 0.30 mg/dL (0.1-1.2) 10/18/19 06:51 AST 14 units/L (5-40) 10/18/19 06:51 ALT 31 units/L (7-56) 10/18/19 06:51 Alkaline Phosphatase 72 units/L (35-129) 10/18/19 06:51 Total Protein 6.4 g/dL (6.3-8.2) 10/18/19 06:51 Albumin 3.6 g/dL (3.9-5) L 10/18/19 06:51 Albumin/Globulin Ratio 1.3 % 10/18/19 06:51 Triglycerides 63 mg/dL (2-149) 10/18/19 06:51 Cholesterol 154 mg/dL (50-199) 10/18/19 06:51 LDL Cholesterol Direct 90 mg/dL (50-130) 10/18/19 06:51 HDL Cholesterol 62 mg/dL (40-59) H 10/18/19 06:51 Cholesterol/HDL Ratio 2.48 % 10/18/19 06:51 Valproic Acid 19.4 ug/mL (50-100) L 10/18/19 06:51 Last Vital Signs Temp 97.9 F 10/24/19 08:53 Pulse 80 10/23/19 18:49 Resp 16 10/24/19 08:53 BP 168/83 10/24/19 08:53 Pulse Ox 97 10/23/19 18:49
[2019-10-24] MEDS: QUEtiapine 25 MG TAB PO SCH ×2 (12:20→16:25)
[2019-10-24] MEDS: QUEtiapine 200 MG TAB PO SCH (21:01)
[2019-10-24] MEDS: traZODone 100 MG TAB PO SCH (21:01)
[2019-10-25] MEDS: QUEtiapine 25 MG TAB PO SCH ×3 (08:23→17:44)
[2019-10-25] MEDS: VALPROIC ACID 250 MG CAP PO SCH ×3 (08:23→22:17)
--- NOTE | 2019-10-25 12:23 | Progress Note ---
Subjective Date of service: 10/25/19 Principal diagnosis: Dementia with Behavioral Disturbances Subjective Comment: I interviewed the patient this morning. Medical records reviewed and patient's progress was discussed with unit staff. Nursing staff reports that patient is awake alert and oriented x 1 trying to swing his legs out of bed. He is able to be redirected. Appetite good and able to make needs known. He is compliant with meds with apple sauce and coughing was at a minimum. Pt had 1 episode of loose stool. Fluids encouraged. Appetite good and no complains of pain. Pt is able to reposition self independently, no skin breakdown noted. In my interview with the patient this morning, the patient reports feeling good denies SI/HI/AVH. Serum VPA level ordered for this morning has not been resulted. Will re-order for tomorrow am. Review of Symptoms: Constitutional: Negative for weight loss ENT: Negative for stridor Respiratory: Negative for cough or hemoptysis All other systems reviewed and are negative MSE Appearance: Wearing appropriate clothing. Behavior: Pleasant and cooperative. Mood: "Good" Affect: Congruent with stated mood Thought Process: disorganized Speech: Normal rate. Thought Content Harmfulness Denies SI/HI Hallucinations: patient denies Delusions: none elicited Consciousness: alert. Cognition/Memory: impaired Insight/Judgment: Limited. Diagnosis: Dementia with Behavioral Disturbances Treatment Plan Due to the psychiatric conditions and treatment listed in the Assessment and Plan - the patient requires continued hospitalization. Will continue inpatient treatment to allow for medication adjustment and monitoring. Will continue q15 min safety checks. Will encourage the use of environmental modifications and non-pharmacologic approaches for the management of behavioral and psychological symptoms. Medication adjustment made today: None Valproic acid level is re-order ed for tomorrow am Monitor for medication side effects. The patient will continue on medications for physical illnesses, and Hospitalist will closely monitor these Continue intensive physical and occupational therapies. Monitor patient's mood, sleep, appetite, and behavior closely. Encourage patient to participate in individual and group therapeutic sessions on the velazquez. Will provide a safe and therapeutic environment for patient. ELOS: 1 - 2 DAYS Medications and Allergies Allergies Allergy/AdvReac Type Severity Reaction Status Date / Time No Known Allergies Allergy Verified 10/17/19 10:25 Home Medications Medication Instructions Recorded Confirmed Last Taken Type Carbidopa/Levodopa 25-100 25 - 100 mg PO TID 10/18/19 10/18/19 Unknown History Carbidopa/Levodopa ER 25-100 25 - 100 mg PO QHS 10/18/19 10/18/19 Unknown History Quetiapine Fumarate 200 mg PO QHS 10/18/19 10/18/19 Unknown History Senna 8.6 mg PO DAILY PRN 10/18/19 10/18/19 Unknown History Tylenol 500 mg PO Q6H PRN 10/18/19 10/18/19 Unknown History Valproic Acid 250 mg PO QHS 10/18/19 10/18/19 Unknown History Active Meds: Active Medications Acetaminophen (Tylenol) 500 mg PO Q6H PRN PRN Reason: Pain, Mild (1-3) Quetiapine Fumarate (Seroquel) 200 mg PO QHS [facility] Last Admin: 10/24/19 21:01 Dose: 200 mg Documented by: Quetiapine Fumarate (Seroquel) 25 mg PO TIDWM [facility] Last Admin: 10/25/19 12:13 Dose: 25 mg Documented by: Senna (Senokot) 8.6 mg PO DAILY PRN PRN Reason: CONSTIPATION Trazodone HCl (Desyrel) 100 mg PO QHS [facility] Last Admin: 10/24/19 21:01 Dose: 100 mg Documented by: Valproic Acid (Depakene) 250 mg PO TID [facility] Last Admin: 10/25/19 08:23 Dose: 250 mg Documented by: Ziprasidone (Geodon) 10 mg IM Q4H PRN PRN Reason: Agitation Last Admin: 10/24/19 09:38 Dose: 10 mg Documented by: Results - Results Labs/Vitals: Laboratory Last Values WBC 11.2 K/mm3 (4.5-11.0) H 10/18/19 09:46 RBC 4.56 M/mm3 (3.65-5.03) 10/18/19 09:46 Hgb 13.4 gm/dl (11.8-15.2) 10/18/19 09:46 Hct 41.1 % (35.5-45.6) 10/18/19 09:46 MCV 90 fl (84-94) 10/18/19 09:46 MCH 29 pg (28-32) 10/18/19 09:46 MCHC 33 % (32-34) 10/18/19 09:46 RDW 15.4 % (13.2-15.2) H 10/18/19 09:46 Plt Count 248 K/mm3 (140-440) 10/18/19 09:46 Lymph % (Auto) 5.5 % (13.4-35.0) L 10/18/19 09:46 [place] % (Auto) 7.7 % (0.0-7.3) H 10/18/19 09:46 Eos % (Auto) 0.5 % (0.0-4.3) 10/18/19 09:46 Baso % (Auto) 0.4 % (0.0-1.8) 10/18/19 09:46 Lymph # 0.6 K/mm3 (1.2-5.4) L 10/18/19 09:46 [place] # 0.9 K/mm3 (0.0-0.8) H 10/18/19 09:46 Eos # 0.1 K/mm3 (0.0-0.4) 10/18/19 09:46 Baso # 0.0 K/mm3 (0.0-0.1) 10/18/19 09:46 Seg Neutrophils % 85.9 % (40.0-70.0) H 10/18/19 09:46 Seg Neutrophils # 9.6 K/mm3 (1.8-7.7) H 10/18/19 09:46 Sodium 145 mmol/L (137-145) 10/18/19 06:51 Potassium 4.3 mmol/L (3.6-5.0) 10/18/19 06:51 Chloride 108.8 mmol/L (98-107) H 10/18/19 06:51 Carbon Dioxide 19 mmol/L (22-30) L 10/18/19 06:51 Anion Gap 22 mmol/L 10/18/19 06:51 BUN 23 mg/dL (9-20) H 10/18/19 06:51 Creatinine 0.5 mg/dL (0.8-1.5) L 10/18/19 06:51 Estimated GFR > 60 ml/min 10/18/19 06:51 BUN/Creatinine Ratio 46 % 10/18/19 06:51 Glucose 97 mg/dL (75-100) 10/18/19 06:51 POC Glucose 121 (70-105) H 10/17/19 20:35 Hemoglobin A1c 6.0 % (4-6) 10/18/19 09:46 Calcium 9.1 mg/dL (8.4-10.2) 10/18/19 06:51 Total Bilirubin 0.30 mg/dL (0.1-1.2) 10/18/19 06:51 AST 14 units/L (5-40) 10/18/19 06:51 ALT 31 units/L (7-56) 10/18/19 06:51 Alkaline Phosphatase 72 units/L (35-129) 10/18/19 06:51 Total Protein 6.4 g/dL (6.3-8.2) 10/18/19 06:51 Albumin 3.6 g/dL (3.9-5) L 10/18/19 06:51 Albumin/Globulin Ratio 1.3 % 10/18/19 06:51 Triglycerides 63 mg/dL (2-149) 10/18/19 06:51 Cholesterol 154 mg/dL (50-199) 10/18/19 06:51 LDL Cholesterol Direct 90 mg/dL (50-130) 10/18/19 06:51 HDL Cholesterol 62 mg/dL (40-59) H 10/18/19 06:51 Cholesterol/HDL Ratio 2.48 % 10/18/19 06:51 Valproic Acid 19.4 ug/mL (50-100) L 10/18/19 06:51 Last Vital Signs Temp 98.2 F 10/25/19 08:23 Pulse 67 10/25/19 08:23 Resp 18 10/25/19 08:23 BP 140/75 10/25/19 08:23 Pulse Ox 95 10/25/19 08:23
[2019-10-25] MEDS: QUEtiapine 200 MG TAB PO SCH (22:17)
[2019-10-25] MEDS: traZODone 100 MG TAB PO SCH (22:18)
--- NOTE | 2019-10-26 08:27 | Discharge Summary ---
Providers - Providers Date of Admission: 10/17/19 10:07 Date of discharge: 10/26/19 Attending physician: SADE RATLIFF MD 10/17/19 10:07 Consult to Physician [CONS] Routine Comment: Consulting Provider: MANUEL DOBBS Physician Instructions: Reason For Exam: Manage medical needs Primary care physician: CHECK AIRMAN Hospitalization Reason for admission: Agitation Condition: Stable Hospital course: The patient was provided inpatient psychiatric treatment with safe and supportive environment, group therapy, psychiatric medication, medication adjustment, adverse effect monitor, medical evaluation, medical treatment, social service assessment, social support meeting and placement assessment. The patients behavior, anxiety and compliance to treatment are improved and stabilized. At the time of discharge, the patient had no suicidal ideas, no homicidal ideas, no aggressive thoughts, no endangering behavior and no debilitating adverse effects. The DPOA/guardian and family agreed on the treatment plan, understood the risk, benefit, alternative treatment, potential consequence of no treatment, and gave informed consent. Disposition: [facility] ([facility]) Time spent for discharge: 35 Allergies/Adverse Reactions: Allergies No Known Allergies Allergy (Verified 10/17/19 10:25) Vital Signs: Last Vital Signs Temp 98.4 F 10/25/19 21:19 Pulse 72 10/25/19 21:19 Resp 18 10/25/19 21:19 BP 101/63 10/25/19 21:19 Pulse Ox 96 10/25/19 21:19 Last Lab: Laboratory Last Values WBC 11.2 K/mm3 (4.5-11.0) H 10/18/19 09:46 RBC 4.56 M/mm3 (3.65-5.03) 10/18/19 09:46 Hgb 13.4 gm/dl (11.8-15.2) 10/18/19 09:46 Hct 41.1 % (35.5-45.6) 10/18/19 09:46 MCV 90 fl (84-94) 10/18/19 09:46 MCH 29 pg (28-32) 10/18/19 09:46 MCHC 33 % (32-34) 10/18/19 09:46 RDW 15.4 % (13.2-15.2) H 10/18/19 09:46 Plt Count 248 K/mm3 (140-440) 10/18/19 09:46 Lymph % (Auto) 5.5 % (13.4-35.0) L 10/18/19 09:46 [place] % (Auto) 7.7 % (0.0-7.3) H 10/18/19 09:46 Eos % (Auto) 0.5 % (0.0-4.3) 10/18/19 09:46 Baso % (Auto) 0.4 % (0.0-1.8) 10/18/19 09:46 Lymph # 0.6 K/mm3 (1.2-5.4) L 10/18/19 09:46 [place] # 0.9 K/mm3 (0.0-0.8) H 10/18/19 09:46 Eos # 0.1 K/mm3 (0.0-0.4) 10/18/19 09:46 Baso # 0.0 K/mm3 (0.0-0.1) 10/18/19 09:46 Seg Neutrophils % 85.9 % (40.0-70.0) H 10/18/19 09:46 Seg Neutrophils # 9.6 K/mm3 (1.8-7.7) H 10/18/19 09:46 Sodium 145 mmol/L (137-145) 10/18/19 06:51 Potassium 4.3 mmol/L (3.6-5.0) 10/18/19 06:51 Chloride 108.8 mmol/L (98-107) H 10/18/19 06:51 Carbon Dioxide 19 mmol/L (22-30) L 10/18/19 06:51 Anion Gap 22 mmol/L 10/18/19 06:51 BUN 23 mg/dL (9-20) H 10/18/19 06:51 Creatinine 0.5 mg/dL (0.8-1.5) L 10/18/19 06:51 Estimated GFR > 60 ml/min 10/18/19 06:51 BUN/Creatinine Ratio 46 % 10/18/19 06:51 Glucose 97 mg/dL (75-100) 10/18/19 06:51 POC Glucose 121 (70-105) H 10/17/19 20:35 Hemoglobin A1c 6.0 % (4-6) 10/18/19 09:46 Calcium 9.1 mg/dL (8.4-10.2) 10/18/19 06:51 Total Bilirubin 0.30 mg/dL (0.1-1.2) 10/18/19 06:51 AST 14 units/L (5-40) 10/18/19 06:51 ALT 31 units/L (7-56) 10/18/19 06:51 Alkaline Phosphatase 72 units/L (35-129) 10/18/19 06:51 Total Protein 6.4 g/dL (6.3-8.2) 10/18/19 06:51 Albumin 3.6 g/dL (3.9-5) L 10/18/19 06:51 Albumin/Globulin Ratio 1.3 % 10/18/19 06:51 Triglycerides 63 mg/dL (2-149) 10/18/19 06:51 Cholesterol 154 mg/dL (50-199) 10/18/19 06:51 LDL Cholesterol Direct 90 mg/dL (50-130) 10/18/19 06:51 HDL Cholesterol 62 mg/dL (40-59) H 10/18/19 06:51 Cholesterol/HDL Ratio 2.48 % 10/18/19 06:51 Valproic Acid 19.4 ug/mL (50-100) L 10/18/19 06:51 Core Measure Documentation - Palliative Care Palliative Care/ Comfort Measures: Not Applicable - Core Measures Any of the following diagnoses?: none Exam - Constitutional Vitals: Temp Pulse Resp BP Pulse Ox 98.4 F 72 18 101/63 96 10/25/19 21:19 10/25/19 21:19 10/25/19 21:19 10/25/19 21:19 10/25/19 21:19 General appearance: Present: no acute distress - EENT Eyes: Present: PERRL, EOM intact ENT: hearing intact, clear oral mucosa - Neck Neck: Present: supple, normal ROM - Respiratory Respiratory effort: normal Plan Activity: advance as tolerated Weight Bearing Status: Weight Bear as Tolerated Follow up with: PRIMARY CARE, [Primary Care Provider] - 7 Days
[2019-10-26] MEDS: QUEtiapine 25 MG TAB PO SCH ×3 (10:09→18:24)
[2019-10-26] MEDS: VALPROIC ACID 250 MG CAP PO SCH ×4 (10:09→19:55)
[2019-10-26] MEDS: traZODone 100 MG TAB PO SCH (22:10)
[2019-10-26] MEDS: QUEtiapine 200 MG TAB PO SCH (22:10)
--- NOTE | 2019-10-27 09:19 | Progress Note ---
Subjective Date of service: 10/27/19 Principal diagnosis: Dementia with Behavioral Disturbances Subjective Comment: Subjective Comment: I interviewed the patient this morning. Medical records reviewed and patient's progress was discussed with unit staff. The patient's nurse said the paitent did not sleep at all last night. Nursing note states received patient irritable and restless in bed. patient is loud with incoherent speech. In my interview with the patient this morning, he is still in bed. Asleep. Arouses easily. He is confused and states he "feels better" but "did not sleep well at all." The patient denies SI/HI or hallucinations of any kind. He says h is appetite is "not good." Reason for continued hospitalization: The patient continues to have increased agitation and restlessness. Medications being adjusted. Review of Symptoms: Constitutional: Negative for weight loss ENT: Negative for stridor Respiratory: Negative for cough or hemoptysis All other systems reviewed and are negative Mental Status Exam Appearance: Wearing appropriate clothing. Asleep Behavior: Irritable, cooperative Mood: "Feels better" Affect: Congruent with stated mood Thought Process: disorganized Speech: Normal rate. Thought Content Harmfulness: Denies Hallucinations: Denies Delusions: none elicited Consciousness: Drowsy Cognition/Memory: impaired Insight/Judgment: Limited. Diagnosis: Dementia with Behavioral Disturbances, Parkinson, Alzheirmers Treatment Plan Due to the psychiatric conditions and treatment listed in the Assessment and Plan - the patient requires continued hospitalization. Will continue inpatient treatment to allow for medication adjustment and monitoring. Will continue q15 min safety checks. Will encourage the use of environmental modifications and non-pharmacologic approaches for the management of behavioral and psychological symptoms. Medication adjustment made today: Added Melatonin 5mg po prn to promote rest. Restarted home Parkinson's medications Will continue current psych medications Monitor for medication side effects. The patient will continue on medications for physical illnesses, and Hospitalist will closely monitor these Continue intensive physical and occupational therapies. Monitor patient's mood, sleep, appetite, and behavior closely. Encourage patient to participate in individual and group therapeutic sessions on the velazquez. Will provide a safe and therapeutic environment for patient. ELOS: 2 to 3 DAYS Medications and Allergies Allergies Allergy/AdvReac Type Severity Reaction Status Date / Time No Known Allergies Allergy Verified 10/17/19 10:25 Home Medications Medication Instructions Recorded Confirmed Last Taken Type Carbidopa/Levodopa 25-100 25 - 100 mg PO TID 10/18/19 10/18/19 Unknown History Carbidopa/Levodopa ER 25-100 25 - 100 mg PO QHS 10/18/19 10/18/19 Unknown History Quetiapine Fumarate 200 mg PO QHS 10/18/19 10/18/19 Unknown History Senna 8.6 mg PO DAILY PRN 10/18/19 10/18/19 Unknown History Tylenol 500 mg PO Q6H PRN 10/18/19 10/18/19 Unknown History Valproic Acid 250 mg PO QHS 10/18/19 10/18/19 Unknown History traZODone [Desyrel] 100 mg PO QHS #30 tablet 10/26/19 Unknown Rx Active Meds: Active Medications Acetaminophen (Tylenol) 500 mg PO Q6H PRN PRN Reason: Pain, Mild (1-3) Quetiapine Fumarate (Seroquel) 200 mg PO QHS [facility] Last Admin: 10/26/19 22:10 Dose: Not Given Documented by: [facility] Last Admin: 10/26/19 18:24 Dose: Not Given Documented by: Senna (Senokot) 8.6 mg PO DAILY PRN PRN Reason: CONSTIPATION Trazodone HCl (Desyrel) 100 mg PO QHS [facility] Last Admin: 10/26/19 22:10 Dose: Not Given Documented by: Valproic Acid (Depakene) 250 mg PO TID [facility] Last Admin: 10/26/19 19:55 Dose: Not Given Documented by: Ziprasidone (Geodon) 10 mg IM Q4H PRN PRN Reason: Agitation Last Admin: 10/24/19 09:38 Dose: 10 mg Documented by: Results - Results Labs/Vitals: Laboratory Last Values WBC 11.2 K/mm3 (4.5-11.0) H 10/18/19 09:46 RBC 4.56 M/mm3 (3.65-5.03) 10/18/19 09:46 Hgb 13.4 gm/dl (11.8-15.2) 10/18/19 09:46 Hct 41.1 % (35.5-45.6) 10/18/19 09:46 MCV 90 fl (84-94) 10/18/19 09:46 MCH 29 pg (28-32) 10/18/19 09:46 MCHC 33 % (32-34) 10/18/19 09:46 RDW 15.4 % (13.2-15.2) H 10/18/19 09:46 Plt Count 248 K/mm3 (140-440) 10/18/19 09:46 Lymph % (Auto) 5.5 % (13.4-35.0) L 10/18/19 09:46 [place] % (Auto) 7.7 % (0.0-7.3) H 10/18/19 09:46 Eos % (Auto) 0.5 % (0.0-4.3) 10/18/19 09:46 Baso % (Auto) 0.4 % (0.0-1.8) 10/18/19 09:46 Lymph # 0.6 K/mm3 (1.2-5.4) L 10/18/19 09:46 [place] # 0.9 K/mm3 (0.0-0.8) H 10/18/19 09:46 Eos # 0.1 K/mm3 (0.0-0.4) 10/18/19 09:46 Baso # 0.0 K/mm3 (0.0-0.1) 10/18/19 09:46 Seg Neutrophils % 85.9 % (40.0-70.0) H 10/18/19 09:46 Seg Neutrophils # 9.6 K/mm3 (1.8-7.7) H 10/18/19 09:46 Sodium 145 mmol/L (137-145) 10/18/19 06:51 Potassium 4.3 mmol/L (3.6-5.0) 10/18/19 06:51 Chloride 108.8 mmol/L (98-107) H 10/18/19 06:51 Carbon Dioxide 19 mmol/L (22-30) L 10/18/19 06:51 Anion Gap 22 mmol/L 10/18/19 06:51 BUN 23 mg/dL (9-20) H 10/18/19 06:51 Creatinine 0.5 mg/dL (0.8-1.5) L 10/18/19 06:51 Estimated GFR > 60 ml/min 10/18/19 06:51 BUN/Creatinine Ratio 46 % 10/18/19 06:51 Glucose 97 mg/dL (75-100) 10/18/19 06:51 POC Glucose 121 (70-105) H 10/17/19 20:35 Hemoglobin A1c 6.0 % (4-6) 10/18/19 09:46 Calcium 9.1 mg/dL (8.4-10.2) 10/18/19 06:51 Total Bilirubin 0.30 mg/dL (0.1-1.2) 10/18/19 06:51 AST 14 units/L (5-40) 10/18/19 06:51 ALT 31 units/L (7-56) 10/18/19 06:51 Alkaline Phosphatase 72 units/L (35-129) 10/18/19 06:51 Total Protein 6.4 g/dL (6.3-8.2) 10/18/19 06:51 Albumin 3.6 g/dL (3.9-5) L 10/18/19 06:51 Albumin/Globulin Ratio 1.3 % 10/18/19 06:51 Triglycerides 63 mg/dL (2-149) 10/18/19 06:51 Cholesterol 154 mg/dL (50-199) 10/18/19 06:51 LDL Cholesterol Direct 90 mg/dL (50-130) 10/18/19 06:51 HDL Cholesterol 62 mg/dL (40-59) H 10/18/19 06:51 Cholesterol/HDL Ratio 2.48 % 10/18/19 06:51 Valproic Acid 48.4 ug/mL (50-100) L 10/26/19 07:18 Last Vital Signs Temp 98.2 F 10/26/19 22:00 Pulse 72 10/26/19 22:00 Resp 20 10/26/19 22:00 BP 173/94 10/26/19 22:00 Pulse Ox 97 10/26/19 22:00
[2019-10-27] MEDS ORDERED: MELATONIN 5 MG TAB PO PRN (09:23)
[2019-10-27] MEDS: VALPROIC ACID 250 MG CAP PO SCH ×3 (09:24→21:49)
[2019-10-27] MEDS: QUEtiapine 25 MG TAB PO SCH ×3 (09:25→16:50)
[2019-10-27] MEDS: CARBIDOPA/LEVODOPA 25-100 MG TAB PO SCH ×3 (10:47→21:49)
[2019-10-27] MEDS ORDERED: CARBIDOPA PO SCH ×2 (14:00→22:00)
[2019-10-27] MEDS ORDERED: LEVODOPA PO SCH ×2 (14:00→22:00)
[2019-10-27] MEDS: QUEtiapine 200 MG TAB PO SCH (21:50)
[2019-10-27] MEDS: traZODone 100 MG TAB PO SCH (21:50)
[2019-10-27] MEDS: CARBIDOPA PO SCH (21:51)
[2019-10-27] MEDS: LEVODOPA PO SCH (21:51)
--- NOTE | 2019-10-28 08:32 | Progress Note ---
Subjective Date of service: 10/28/19 Principal diagnosis: Dementia with Behavioral Disturbances Subjective Comment: Subjective Comment: I interviewed the patient this morning. Medical records reviewed and patient's progress was discussed with unit staff. The nurse note states the patient is alert and oriented x's 1; confused, restless, and irritable this AM. patient has been trying to climb out of bed and put his leg over the bed rail. patient has been repositioned multiple times this morning. patient refused to eat breakfast. patient tolerated morning medications crushed in chocolate pudding. flat affect. patient has loud and garbled speech. In my interview with the patient this morning, he is in day room. Asleep. Easily arouses. The patient appears irritated that I woke him up. The patient does not answer any questions directed to him. He just stares at me during the entire interview. Reason for continued hospitalization: The patient continues to be confused, have agitation and restlessness. Medications being adjusted. Review of Symptoms: Unable to assess due to irritability and uncooperative behavior Mental Status Exam Appearance: Wearing appropriate clothing. Asleep Behavior: quiet, uncooperative Mood: Unable to assess Affect: Congruent with stated mood Thought Process: Unable to assess Speech: Unable to assess Thought Content Harmfulness: Unable to assess Hallucinations: Unable to assess Delusions: none elicited Consciousness: alert Cognition/Memory: impaired Insight/Judgment: Limited. Diagnosis: Dementia with Behavioral Disturbances, Parkinson, Alzheirmers Treatment Plan Due to the psychiatric conditions and treatment listed in the Assessment and Plan - the patient requires continued hospitalization. Will continue inpatient treatment to allow for medication adjustment and monitoring. Will continue q15 min safety checks. Will encourage the use of environmental modifications and non-pharmacologic approaches for the management of behavioral and psychological symptoms. Medication adjustment made today: No changes today. Changes made yesterday. Will continue current psych medications Monitor for medication side effects. The patient will continue on medications for physical illnesses, and Hospitalist will closely monitor these Continue intensive physical and occupational therapies. Monitor patient's mood, sleep, appetite, and behavior closely. Encourage patient to participate in individual and group therapeutic sessions on the velazquez. Will provide a safe and therapeutic environment for patient. ELOS: 2 to 3 DAYS Medications and Allergies Allergies Allergy/AdvReac Type Severity Reaction Status Date / Time No Known Allergies Allergy Verified 10/17/19 10:25 Home Medications Medication Instructions Recorded Confirmed Last Taken Type Carbidopa/Levodopa 25-100 25 - 100 mg PO TID 10/18/19 10/18/19 Unknown History Carbidopa/Levodopa ER 25-100 25 - 100 mg PO QHS 10/18/19 10/18/19 Unknown History Quetiapine Fumarate 200 mg PO QHS 10/18/19 10/18/19 Unknown History Senna 8.6 mg PO DAILY PRN 10/18/19 10/18/19 Unknown History Tylenol 500 mg PO Q6H PRN 10/18/19 10/18/19 Unknown History Valproic Acid 250 mg PO QHS 10/18/19 10/18/19 Unknown History traZODone [Desyrel] 100 mg PO QHS #30 tablet 10/26/19 Unknown Rx Active Meds: Active Medications Acetaminophen (Tylenol) 500 mg PO Q6H PRN PRN Reason: Pain, Mild (1-3) Carbidopa/Levodopa (Sinemet) 1 each PO TID [facility] Last Admin: 10/27/19 21:49 Dose: 1 each Documented by: Carbidopa/Levodopa (Sinemet Er) 1 each PO QHS [facility] Last Admin: 10/27/19 21:51 Dose: 1 each Documented by: Melatonin (Melatonin) 5 mg PO QHS PRN PRN Reason: Sleep Quetiapine Fumarate (Seroquel) 200 mg PO QHS [facility] Last Admin: 10/27/19 21:50 Dose: 200 mg Documented by: Quetiapine Fumarate (Seroquel) 25 mg PO TIDWM [facility] Last Admin: 10/27/19 16:50 Dose: 25 mg Documented by: Senna (Senokot) 8.6 mg PO DAILY PRN PRN Reason: CONSTIPATION Trazodone HCl (Desyrel) 100 mg PO QHS [facility] Last Admin: 10/27/19 21:50 Dose: 100 mg Documented by: Valproic Acid (Depakene) 250 mg PO TID [facility] Last Admin: 10/27/19 21:49 Dose: 250 mg Documented by: Ziprasidone (Geodon) 10 mg IM Q4H PRN PRN Reason: Agitation Last Admin: 10/24/19 09:38 Dose: 10 mg Documented by: Results - Results Labs/Vitals: Laboratory Last Values WBC 11.2 K/mm3 (4.5-11.0) H 10/18/19 09:46 RBC 4.56 M/mm3 (3.65-5.03) 10/18/19 09:46 Hgb 13.4 gm/dl (11.8-15.2) 10/18/19 09:46 Hct 41.1 % (35.5-45.6) 10/18/19 09:46 MCV 90 fl (84-94) 10/18/19 09:46 MCH 29 pg (28-32) 10/18/19 09:46 MCHC 33 % (32-34) 10/18/19 09:46 RDW 15.4 % (13.2-15.2) H 10/18/19 09:46 Plt Count 248 K/mm3 (140-440) 10/18/19 09:46 Lymph % (Auto) 5.5 % (13.4-35.0) L 10/18/19 09:46 [place] % (Auto) 7.7 % (0.0-7.3) H 10/18/19 09:46 Eos % (Auto) 0.5 % (0.0-4.3) 10/18/19 09:46 Baso % (Auto) 0.4 % (0.0-1.8) 10/18/19 09:46 Lymph # 0.6 K/mm3 (1.2-5.4) L 10/18/19 09:46 [place] # 0.9 K/mm3 (0.0-0.8) H 10/18/19 09:46 Eos # 0.1 K/mm3 (0.0-0.4) 10/18/19 09:46 Baso # 0.0 K/mm3 (0.0-0.1) 10/18/19 09:46 Seg Neutrophils % 85.9 % (40.0-70.0) H 10/18/19 09:46 Seg Neutrophils # 9.6 K/mm3 (1.8-7.7) H 10/18/19 09:46 Sodium 145 mmol/L (137-145) 10/18/19 06:51 Potassium 4.3 mmol/L (3.6-5.0) 10/18/19 06:51 Chloride 108.8 mmol/L (98-107) H 10/18/19 06:51 Carbon Dioxide 19 mmol/L (22-30) L 10/18/19 06:51 Anion Gap 22 mmol/L 10/18/19 06:51 BUN 23 mg/dL (9-20) H 10/18/19 06:51 Creatinine 0.5 mg/dL (0.8-1.5) L 10/18/19 06:51 Estimated GFR > 60 ml/min 10/18/19 06:51 BUN/Creatinine Ratio 46 % 10/18/19 06:51 Glucose 97 mg/dL (75-100) 10/18/19 06:51 POC Glucose 121 (70-105) H 10/17/19 20:35 Hemoglobin A1c 6.0 % (4-6) 10/18/19 09:46 Calcium 9.1 mg/dL (8.4-10.2) 10/18/19 06:51 Total Bilirubin 0.30 mg/dL (0.1-1.2) 10/18/19 06:51 AST 14 units/L (5-40) 10/18/19 06:51 ALT 31 units/L (7-56) 10/18/19 06:51 Alkaline Phosphatase 72 units/L (35-129) 10/18/19 06:51 Total Protein 6.4 g/dL (6.3-8.2) 10/18/19 06:51 Albumin 3.6 g/dL (3.9-5) L 10/18/19 06:51 Albumin/Globulin Ratio 1.3 % 10/18/19 06:51 Triglycerides 63 mg/dL (2-149) 10/18/19 06:51 Cholesterol 154 mg/dL (50-199) 10/18/19 06:51 LDL Cholesterol Direct 90 mg/dL (50-130) 10/18/19 06:51 HDL Cholesterol 62 mg/dL (40-59) H 10/18/19 06:51 Cholesterol/HDL Ratio 2.48 % 10/18/19 06:51 Valproic Acid 48.4 ug/mL (50-100) L 10/26/19 07:18 Last Vital Signs Temp 97.4 F L 10/27/19 20:32 Pulse 78 10/27/19 20:32 Resp 16 10/27/19 20:32 BP 130/78 10/27/19 20:32 Pulse Ox 95 10/27/19 20:32
[2019-10-28] MEDS: VALPROIC ACID 250 MG CAP PO SCH ×3 (09:32→20:57)
[2019-10-28] MEDS: QUEtiapine 25 MG TAB PO SCH ×3 (09:33→16:00)
[2019-10-28] MEDS: CARBIDOPA/LEVODOPA 25-100 MG TAB PO SCH ×3 (09:33→20:57)
[2019-10-28] MEDS: LEVODOPA PO SCH ×2 (13:38→22:52)
[2019-10-28] MEDS: CARBIDOPA PO SCH ×2 (13:38→22:52)
[2019-10-28] MEDS: ZIPRASIDONE MESYLATE 20 MG VIAL IM PRN (15:49)
[2019-10-28] MEDS: QUEtiapine 200 MG TAB PO SCH (21:10)
[2019-10-28] MEDS: traZODone 100 MG TAB PO SCH (21:10)
[2019-10-29] MEDS: QUEtiapine 25 MG TAB PO SCH ×3 (08:04→16:39)
[2019-10-29] MEDS: CARBIDOPA/LEVODOPA 25-100 MG TAB PO SCH ×3 (08:04→20:26)
[2019-10-29] MEDS: VALPROIC ACID 250 MG CAP PO SCH ×3 (08:04→20:25)
--- NOTE | 2019-10-29 09:16 | Progress Note ---
Subjective Date of service: 10/29/19 Principal diagnosis: Dementia with Behavioral Disturbances Subjective Comment: Subjective Comment: I interviewed the patient this morning. Medical records reviewed and patient's progress was discussed with unit staff. The nurse note states the patient was agitated, remain physically aggressive towards staff, taking off his covering cloth in the Day Room as well as Yelling and being very disruptive. Pt had to be administered Geodon 10mg IM PRN for severe agitation and will continued to be monitored for safety and re-assess within the hour for medication effectiveness. In my interview with the patient this morning, the patient is in bed asleep. Arouses with tactile stimuli. The patient stares at me during interview. He made no attempt to cooperate. Reason for continued hospitalization: The patient continues to be confused, have agitation and restlessness. Medications being adjusted. Review of Symptoms: Unable to assess due to irritability and uncooperative behavior Mental Status Exam Appearance: Wearing appropriate clothing. Asleep Behavior: quiet, uncooperative Mood: Unable to assess Affect: Congruent with stated mood Thought Process: Unable to assess Speech: Unable to assess Thought Content Harmfulness: Unable to assess Hallucinations: Unable to assess Delusions: none elicited Consciousness: alert Cognition/Memory: impaired Insight/Judgment: Limited. Diagnosis: Dementia with Behavioral Disturbances, Parkinson, Alzheirmers Treatment Plan Due to the psychiatric conditions and treatment listed in the Assessment and Plan - the patient requires continued hospitalization. Will continue inpatient treatment to allow for medication adjustment and alison toring. Will continue q15 min safety checks. Will encourage the use of environmental modifications and non-pharmacologic approaches for the management of behavioral and psychological symptoms. Medication adjustment made today: Increased Seroquel to 50mg TIDwm to improve mood and decrease irritability and aggression Will continue current psych medications Monitor for medication side effects. The patient will continue on medications for physical illnesses, and Hospitalist will closely monitor these Continue intensive physical and occupational therapies. Monitor patient's mood, sleep, appetite, and behavior closely. Encourage patient to participate in individual and group therapeutic sessions on the [place]. Will provide a safe and therapeutic environment for patient. ELOS: 2 DAYS Medications and Allergies Allergies Allergy/AdvReac Type Severity Reaction Status Date / Time No Known Allergies Allergy Verified 10/17/19 10:25 Home Medications Medication Instructions Recorded Confirmed Last Taken Type Carbidopa/Levodopa 25-100 25 - 100 mg PO TID 10/18/19 10/18/19 Unknown History Carbidopa/Levodopa ER 25-100 25 - 100 mg PO QHS 10/18/19 10/18/19 Unknown History Quetiapine Fumarate 200 mg PO QHS 10/18/19 10/18/19 Unknown History Senna 8.6 mg PO DAILY PRN 10/18/19 10/18/19 Unknown History Tylenol 500 mg PO Q6H PRN 10/18/19 10/18/19 Unknown History Valproic Acid 250 mg PO QHS 10/18/19 10/18/19 Unknown History traZODone [Desyrel] 100 mg PO QHS #30 tablet 10/26/19 Unknown Rx Active Meds: Active Medications Acetaminophen (Tylenol) 500 mg PO Q6H PRN PRN Reason: Pain, Mild (1-3) Carbidopa/Levodopa (Sinemet) 1 each PO TID [facility] Last Admin: 10/29/19 08:04 Dose: 1 each Documented by: Carbidopa/Levodopa (Sinemet Er) 1 each PO QHS [facility] Last Admin: 10/28/19 22:52 Dose: 1 each Documented by: Melatonin (Melatonin) 5 mg PO QHS PRN PRN Reason: Sleep Quetiapine Fumarate (Seroquel) 200 mg PO QHS [facility] Last Admin: 10/28/19 21:10 Dose: 200 mg Documented by: Quetiapine Fumarate (Seroquel) 25 mg PO TIDWM [facility] Last Admin: 10/29/19 08:04 Dose: 25 mg Documented by: Senna (Senokot) 8.6 mg PO DAILY PRN PRN Reason: CONSTIPATION Trazodone HCl (Desyrel) 100 mg PO QHS [facility] Last Admin: 10/28/19 21:10 Dose: 100 mg Documented by: Valproic Acid (Depakene) 250 mg PO TID [facility] Last Admin: 10/29/19 08:04 Dose: 250 mg Documented by: Ziprasidone (Geodon) 10 mg IM Q4H PRN PRN Reason: Agitation Last Admin: 10/28/19 15:49 Dose: 10 mg Documented by: Results - Results Labs/Vitals: Laboratory Last Values WBC 11.2 K/mm3 (4.5-11.0) H 10/18/19 09:46 RBC 4.56 M/mm3 (3.65-5.03) 10/18/19 09:46 Hgb 13.4 gm/dl (11.8-15.2) 10/18/19 09:46 Hct 41.1 % (35.5-45.6) 10/18/19 09:46 MCV 90 fl (84-94) 10/18/19 09:46 MCH 29 pg (28-32) 10/18/19 09:46 MCHC 33 % (32-34) 10/18/19 09:46 RDW 15.4 % (13.2-15.2) H 10/18/19 09:46 Plt Count 248 K/mm3 (140-440) 10/18/19 09:46 Lymph % (Auto) 5.5 % (13.4-35.0) L 10/18/19 09:46 [place]field % (Auto) 7.7 % (0.0-7.3) H 10/18/19 09:46 Eos % (Auto) 0.5 % (0.0-4.3) 10/18/19 09:46 Baso % (Auto) 0.4 % (0.0-1.8) 10/18/19 09:46 Lymph # 0.6 K/mm3 (1.2-5.4) L 10/18/19 09:46 [place]field # 0.9 K/mm3 (0.0-0.8) H 10/18/19 09:46 Eos # 0.1 K/mm3 (0.0-0.4) 10/18/19 09:46 Baso # 0.0 K/mm3 (0.0-0.1) 10/18/19 09:46 Seg Neutrophils % 85.9 % (40.0-70.0) H 10/18/19 09:46 Seg Neutrophils # 9.6 K/mm3 (1.8-7.7) H 10/18/19 09:46 Sodium 145 mmol/L (137-145) 10/18/19 06:51 Potassium 4.3 mmol/L (3.6-5.0) 10/18/19 06:51 Chloride 108.8 mmol/L (98-107) H 10/18/19 06:51 Carbon Dioxide 19 mmol/L (22-30) L 10/18/19 06:51 Anion Gap 22 mmol/L 10/18/19 06:51 BUN 23 mg/dL (9-20) H 10/18/19 06:51 Creatinine 0.5 mg/dL (0.8-1.5) L 10/18/19 06:51 Estimated GFR > 60 ml/min 10/18/19 06:51 BUN/Creatinine Ratio 46 % 10/18/19 06:51 Glucose 97 mg/dL (75-100) 10/18/19 06:51 POC Glucose 121 (70-105) H 10/17/19 20:35 Hemoglobin A1c 6.0 % (4-6) 10/18/19 09:46 Calcium 9.1 mg/dL (8.4-10.2) 10/18/19 06:51 Total Bilirubin 0.30 mg/dL (0.1-1.2) 10/18/19 06:51 AST 14 units/L (5-40) 10/18/19 06:51 ALT 31 units/L (7-56) 10/18/19 06:51 Alkaline Phosphatase 72 units/L (35-129) 10/18/19 06:51 Total Protein 6.4 g/dL (6.3-8.2) 10/18/19 06:51 Albumin 3.6 g/dL (3.9-5) L 10/18/19 06:51 Albumin/Globulin Ratio 1.3 % 10/18/19 06:51 Triglycerides 63 mg/dL (2-149) 10/18/19 06:51 Cholesterol 154 mg/dL (50-199) 10/18/19 06:51 LDL Cholesterol Direct 90 mg/dL (50-130) 10/18/19 06:51 HDL Cholesterol 62 mg/dL (40-59) H 10/18/19 06:51 Cholesterol/HDL Ratio 2.48 % 10/18/19 06:51 Valproic Acid 48.4 ug/mL (50-100) L 10/26/19 07:18 Last Vital Signs Temp 98.0 F 10/28/19 19:41 Pulse 75 10/28/19 19:41 Resp 16 10/28/19 19:41 BP 108/56 10/29/19 08:47 Pulse Ox 94 10/28/19 19:41
[2019-10-29] MEDS ORDERED: WATER FOR INJ Sterile (PF) 10 ML ONE (09:50)
[2019-10-29] MEDS: QUEtiapine 200 MG TAB PO SCH (21:25)
[2019-10-29] MEDS: traZODone 100 MG TAB PO SCH (21:25)
[2019-10-29] MEDS: LEVODOPA PO SCH (21:26)
[2019-10-29] MEDS: CARBIDOPA PO SCH (21:26)
[2019-10-30 01:30] VITALS: BP 121/74
[2019-10-30] MEDS: CARBIDOPA/LEVODOPA 25-100 MG TAB PO SCH (08:33)
[2019-10-30] MEDS: VALPROIC ACID 250 MG CAP PO SCH (08:34)
[2019-10-30] MEDS: QUEtiapine 25 MG TAB PO SCH ×2 (08:34→12:11)
--- NOTE | 2019-10-30 09:21 | Discharge Summary ---
Providers - Providers Date of Admission: 10/17/19 10:07 Date of discharge: 10/30/19 Attending physician: SADE RATLIFF MD 10/17/19 10:07 Consult to Physician [CONS] Routine Comment: Consulting Provider: MANUEL DOBBS Physician Instructions: Reason For Exam: Manage medical needs Primary care physician: [employer] Hospitalization Condition: Stable Disposition: [place]-03 [facility] Time spent for discharge: 37 min Allergies/Adverse Reactions: Allergies No Known Allergies Allergy (Verified 10/17/19 10:25) Vital Signs: Last Vital Signs Temp 97.5 F L 10/30/19 00:04 Pulse 68 10/30/19 00:04 Resp 20 10/30/19 00:04 BP 121/74 10/30/19 00:04 Pulse Ox 97 10/30/19 00:04 Last Lab: Laboratory Last Values WBC 11.2 K/mm3 (4.5-11.0) H 10/18/19 09:46 RBC 4.56 M/mm3 (3.65-5.03) 10/18/19 09:46 Hgb 13.4 gm/dl (11.8-15.2) 10/18/19 09:46 Hct 41.1 % (35.5-45.6) 10/18/19 09:46 MCV 90 fl (84-94) 10/18/19 09:46 MCH 29 pg (28-32) 10/18/19 09:46 MCHC 33 % (32-34) 10/18/19 09:46 RDW 15.4 % (13.2-15.2) H 10/18/19 09:46 Plt Count 248 K/mm3 (140-440) 10/18/19 09:46 Lymph % (Auto) 5.5 % (13.4-35.0) L 10/18/19 09:46 Colbert % (Auto) 7.7 % (0.0-7.3) H 10/18/19 09:46 Eos % (Auto) 0.5 % (0.0-4.3) 10/18/19 09:46 Baso % (Auto) 0.4 % (0.0-1.8) 10/18/19 09:46 Lymph # 0.6 K/mm3 (1.2-5.4) L 10/18/19 09:46 Colbert # 0.9 K/mm3 (0.0-0.8) H 10/18/19 09:46 Eos # 0.1 K/mm3 (0.0-0.4) 10/18/19 09:46 Baso # 0.0 K/mm3 (0.0-0.1) 10/18/19 09:46 Seg Neutrophils % 85.9 % (40.0-70.0) H 10/18/19 09:46 Seg Neutrophils # 9.6 K/mm3 (1.8-7.7) H 10/18/19 09:46 Sodium 145 mmol/L (137-145) 10/18/19 06:51 Potassium 4.3 mmol/L (3.6-5.0) 10/18/19 06:51 Chloride 108.8 mmol/L (98-107) H 10/18/19 06:51 Carbon Dioxide 19 mmol/L (22-30) L 10/18/19 06:51 Anion Gap 22 mmol/L 10/18/19 06:51 BUN 23 mg/dL (9-20) H 10/18/19 06:51 Creatinine 0.5 mg/dL (0.8-1.5) L 10/18/19 06:51 Estimated GFR > 60 ml/min 10/18/19 06:51 BUN/Creatinine Ratio 46 % 10/18/19 06:51 Glucose 97 mg/dL (75-100) 10/18/19 06:51 POC Glucose 121 (70-105) H 10/17/19 20:35 Hemoglobin A1c 6.0 % (4-6) 10/18/19 09:46 Calcium 9.1 mg/dL (8.4-10.2) 10/18/19 06:51 Total Bilirubin 0.30 mg/dL (0.1-1.2) 10/18/19 06:51 AST 14 units/L (5-40) 10/18/19 06:51 ALT 31 units/L (7-56) 10/18/19 06:51 Alkaline Phosphatase 72 units/L (35-129) 10/18/19 06:51 Total Protein 6.4 g/dL (6.3-8.2) 10/18/19 06:51 Albumin 3.6 g/dL (3.9-5) L 10/18/19 06:51 Albumin/Globulin Ratio 1.3 % 10/18/19 06:51 Triglycerides 63 mg/dL (2-149) 10/18/19 06:51 Cholesterol 154 mg/dL (50-199) 10/18/19 06:51 LDL Cholesterol Direct 90 mg/dL (50-130) 10/18/19 06:51 HDL Cholesterol 62 mg/dL (40-59) H 10/18/19 06:51 Cholesterol/HDL Ratio 2.48 % 10/18/19 06:51 Valproic Acid 48.4 ug/mL (50-100) L 10/26/19 07:18 Core Measure Documentation - Palliative Care Palliative Care/ Comfort Measures: Not Applicable - Core Measures Any of the following diagnoses?: none Exam - Constitutional Vitals: Temp Pulse Resp BP Pulse Ox 97.5 F L 68 20 121/74 97 10/30/19 00:04 10/30/19 00:04 10/30/19 00:04 10/30/19 00:04 10/30/19 00:04 General appearance: Present: no acute distress, well-nourished - EENT Eyes: Present: PERRL, EOM intact ENT: hearing intact, clear oral mucosa - Neck Neck: Present: supple, normal ROM - Respiratory Respiratory effort: normal Plan Care Plan Goals: Maintain good and stable mental health Plan of Treatment: The patient should be compliant with medications, not to use drugs and not to drink alcohol. The SNF understands that if suicidal ideas, homicidal ideas, or any endangering thoughts/behavior arise, they should immediately seek for emergent assistance including but not limited to crisis hot line and emergency room. Follow up with outpatient Psychiatrist and PCP within 7 - 14 days of discharge. Health Concerns: Parkinson's, Alzheimers, Dementia Assessment: Dementia w/Behavioral Distrubances Follow up with: PRIMARY CARE, [Primary Care Provider] - 7 Days Prescriptions: Carbidopa/Levodopa ER 25-100 25 - 100 mg PO QHS #30 traZODone [Desyrel] 100 mg PO QHS #30 tablet Quetiapine Fumarate 200 mg PO QHS #30 Carbidopa/Levodopa 25-100 25 - 100 mg PO TID #90 Valproic Acid [Depakene] 250 mg PO TID #90 capsule QUEtiapine [SEROquel] 50 mg PO TIDWM #90 tablet
== END 2019-10-30 12:48 | DRG 57 ==
LOC: 3A 09:44 → UNDOADMIN 09:44 → 5A 10:07
PROVIDERS: ADMIT Psychiatry & Neurology Psychiatry; ATTEND Psychiatry & Neurology Psychiatry
DX: G30.9 Alzheimer's disease, unspecified (principal); G93.40 Encephalopathy, unspecified; F02.81 Dementia in other diseases classified elsewhere, unspecified severity, with behavioral disturbance; G20 Parkinson's disease; I10 Essential (primary) hypertension; Z86.73 Personal history of transient ischemic attack (TIA), and cerebral infarction without residual deficits; Z79.899 Other long term (current) drug therapy
CPT/HCPCS: 36415; 71045; 80053; 80061; 80164; 82962; 83036; 85025; G0378; J2060; J3486